=== PATIENT | male | born 1940 | race Caucasian/White ===

== ENCOUNTER 2018-08-30 11:42 | Emergency (ER) | payer MEDICARE | END 2018-08-30 12:53 | disposition home or self-care (01) | LOC: EDH 11:42 | DX: L72.3 Sebaceous cyst (principal); E11.9 Type 2 diabetes mellitus without complications; I10 Essential (primary) hypertension; E78.5 Hyperlipidemia, unspecified; I48.91 Unspecified atrial fibrillation ==